=== PATIENT | male | born 2005 | race Caucasian/White ===

== ENCOUNTER 2024-02-28 16:37 | Emergency (ER) | payer MEDICAID, SELFPAY ==
--- NOTE | 2024-02-28 17:05 | ED.GENADULT ---
HPI - General Adult General Chief complaint: Eye Problems Stated complaint: ?FB in R eye Time Seen by Provider: 02/28/24 17:38 Source: patient and family Mode of arrival: ambulatory Limitations: no limitations History of Present Illness ED Provider: Regis Johnson PA-C HPI narrative: 18 yo male with insignificant PMH presenting with right eye irritation, pain, feeling like a scratched area. Reports woke up this morning with this pain and irritation. Does not remember doing anything of significance, denies scratching with fingers or hands, denies itch. Denies discharge, reports watering with the pain, clears with blinking. Denies any changes in vision. Denies URI symptoms. MD complaint: right eye irritation Onset (ago): hour(s) Location: eyes Radiation: non-radiation Severity: moderate Quality: burning Pain Consistency: constant Relieving factors: none Exacerbating factors: none Associated symptoms: denies other symptoms Treatments prior to arrival: none Related Data Previous Rx's ?Medication ?Instructions ?Recorded erythromycin 5 mg/gram (0.5 %) eye 0.5 inch ophthalmic (eye) BID #3.5 02/28/24 ointment grams Allergies Allergy/AdvReac Type Severity Reaction Status Date / Time No Known Allergies Allergy Verified 02/28/24 17:07 Review of Systems Review of Systems: Yes all other systems are reviewed and are negative [facility] Social History Social History Advance Directives: No Advance Directives Information Provided: No Physical Exam ED Vital Signs: Vital Signs - 24 hr 02/28/24 17:06 02/28/24 18:20 Temperature 98.2 F 98.2 F Pulse Rate 51 51 Respiratory Rate 18 18 Blood Pressure 129/90 H 129/90 H Pulse Oximetry 97 97 Oxygen Delivery Method Room Air BMI result Body Mass Index 27.1 Appearance: Alert. Oriented X3. No acute distress. HEENT: right eye with some mild conjunctival and scleral injection mostly in the lateral aspect of the eye. Normal inspection of the left eye conjunctiva and sclera. Normal inspection of the bilateral periorbital regions, extraocular movements are intact and pupils are equal round and reactive to light bilaterally. Fluorescein with a small superficial corneal abrasion with positive uptake at 06:00 o'clock over the iris CVS: Normal heart rate and rhythm. Respiratory: No respiratory distress. Skin: Skin warm and dry. Normal skin color. Normal skin turgor. No rashes. Extremities: normal inspection Neuro: Oriented X 3. Grossly normal, nonfocal Course Course Course Narrative: This is an RME done by MANUELA Medley: Additional HPI, ROS, PE not included below will be deferred to primary provider. 18yo M presents with a CC of foreign body in right eye. Onset this morning upon waking, patient was fine before he went to sleep last night. 7/10 pain. No welding. No sick contacts. No recent URI. Appearance: Alert.? Oriented X3.? No acute cardiopulmonary distress distress.? Head: Normocephalic, atraumatic ENT: Red conjunctiva affecting the R eye CVS: Pulses normal.? Respiratory: No respiratory distress.? Skin: ? Normal skin color. Neuro: Oriented X 3.? Medications Administered Discontinued Medications Generic Name Dose Route Start Last Admin Trade Name Freq PRN Reason Stop Dose Admin Fluorescein Sodium 1 strip 02/28/24 17:38 02/28/24 18:02 Fluorescein Sodium Strip EYE-RIGHT 02/28/24 17:39 1 strip ONCE ONE Administration Tetracaine HCl 1 drop 02/28/24 17:38 02/28/24 18:02 Tetracaine Hcl/Pf 0.5% Oph Mignon 4 Ml Drops EYE-RIGHT 02/28/24 17:39 1 drop ONCE ONE Administration Medical Decision Making Medical Decision Making [facility] Narrative: 18 yo male with insignificant PMH presenting with right eye irritation, pain, feeling like a scratched area. Reports woke up this morning with this pain and irritation. Right eye redness notable to the outter surface, no discharge noted. All EOMs intact, no changes to VA. Visual exam negative for abnormalities. Varela lamp exam however, is notable for small L lower lateral cornea abrasion. Will prescribe erythromycin ointment. Stable for discharge home. Differential Diagnosis Differential Diagnoses: The differential diagnosis associated with the presentation includes conjunctivitis, dry eyes, corneal injury, episcleritits, scleritis, URI Independent Historian Clinical information obtained from an independent historian. History obtained from or confirmed by: Parent External Record Review External record reviewed: Outpatient record, Prior outpatient labs and Prior outpatient radiology Prescription Management I considered prescription management with: Pain Medication and Antibiotic Critical Care Time Critical Care Time Critical Care Time: No Discharge Plan Discharge Clinical Impression: Corneal abrasion Patient Disposition: Home, Self-Care Instructions: Corneal Abrasion (DC) Additional Instructions: your exam showed a small corneal abrasion. Use the prescribed antibiotic ointment 2 times a day for 1 week. Your best not to rub or itch your eye Use cool or warm compresses to the eye as needed for discomfort. Follow-up with your doctor. If you have ongoing symptoms, recommend following up with the research computing specialist. Name and number below. Call for an appointment. Prescriptions: New erythromycin 5 mg/gram (0.5 %) ointment 0.5 inch ophthalmic (eye) BID Qty: 3.5 0RF Referrals: Maxim Rouse [Physician] - (Corneal abrasion) Interventions: ED Discharge Assessment Last Done: 02/28/24 18:20 Discharge Date/Time: 02/28/24 18:20 Print Language: Citizen Of [place]
[2024-02-28 17:06] VITALS: BP 129/90; PULSE 51; RESP 18; TEMP 36.8; O2SAT 97; BMI 27.1
[2024-02-28] MEDS: Tetracaine HCl/PF 0.5% Oph Sol 4 ML DROPS 1 DROP EYE-RIGHT (18:02)
[2024-02-28] MEDS: Fluorescein Sodium STRIP 1 STRIP EYE-RIGHT (18:02)
[2024-02-28 18:20] VITALS: BP 129/90; PULSE 51; RESP 18; TEMP 36.8; O2SAT 97
== END 2024-02-28 18:20 | disposition home or self-care (01) ==
PROVIDERS: Emergency Provider Internal Medicine
DX: S05.01XA Injury of conjunctiva and corneal abrasion without foreign body, right eye, initial encounter (principal); X58.XXXA Exposure to other specified factors, initial encounter; Y93.84 Activity, sleeping; Y92.003 Bedroom of unspecified non-institutional (private) residence as the place of occurrence of the external cause; Y99.9 Unspecified external cause status
CPT/HCPCS: 99282; 99283

== ENCOUNTER 2025-04-29 13:42 | Emergency (ER) | payer SELFPAY ==
--- NOTE | ~2025-04-29 | US_ITS ---
EXAMINATION: US SCROTUM CLINICAL INFORMATION: Left scrotal pain COMPARISON: None available. TECHNIQUE: A sonogram of the scrotum was performed assessing cano-scale appearance and color Doppler flow. Spectral Doppler analysis of the arterial and venous flow were performed in the testes bilaterally. FINDINGS: RIGHT: Right testicle measures 4.3 cm, volume 11 mL. No focal testicular parenchymal lesions are visualized. Spectral Doppler analysis of the arterial and venous flow is documented in the right testis. Right epididymal head is normal in size. Small hydrocele is present. Right epididymal Doppler flow is present LEFT: Left testicle measures 4.2 cm, volume 12 mL. No focal testicular parenchymal lesions are visualized. Spectral Doppler analysis of the arterial and venous flow is documented in the left testis. Left epididymal head is normal in size. There is a 4 mm cyst near the head. Left epididymal Doppler flow is present US/US scrotum doppler IMPRESSION: Small right hydrocele. Small left epididymal head cyst. Electronically signed by: Alejandro Pearce MD 04/29/2025 03:45 PM EST
--- NOTE | ~2025-04-29 | US_ITS ---
EXAMINATION: US SCROTUM CLINICAL INFORMATION: Left scrotal pain COMPARISON: None available. TECHNIQUE: A sonogram of the scrotum was performed assessing cano-scale appearance and color Doppler flow. Spectral Doppler analysis of the arterial and venous flow were performed in the testes bilaterally. FINDINGS: RIGHT: Right testicle measures 4.3 cm, volume 11 mL. No focal testicular parenchymal lesions are visualized. Spectral Doppler analysis of the arterial and venous flow is documented in the right testis. Right epididymal head is normal in size. Small hydrocele is present. Right epididymal Doppler flow is present LEFT: Left testicle measures 4.2 cm, volume 12 mL. No focal testicular parenchymal lesions are visualized. Spectral Doppler analysis of the arterial and venous flow is documented in the left testis. Left epididymal head is normal in size. There is a 4 mm cyst near the head. Left epididymal Doppler flow is present US/US scrotum IMPRESSION: Small right hydrocele. Small left epididymal head cyst. Electronically signed by: Alejandro Pearce MD 04/29/2025 03:45 PM EST
[2025-04-29 14:06] VITALS: BP 133/59; PULSE 64; RESP 16; TEMP 36.7; O2SAT 97; BMI 27.8
--- NOTE | 2025-04-29 14:06 | ED.GENADULT ---
HPI - General Adult General Chief complaint: Urogenital-Male Stated complaint: Genital pain Time Seen by Provider: 04/29/25 17:19 Source: patient Mode of arrival: ambulatory Limitations: no limitations History of Present Illness ED Provider: Yung Richardson HPI narrative: 19 yold male with no pmh presents to the ED for left testicular pain that started this morning. patient has had this pain in the past for couple of years, but today it was the worst. patient presently is asymptomatic. patient denies any penile lesions or penile discharge. Related Data Previous Rx's ?Medication ?Instructions ?Recorded erythromycin 5 mg/gram (0.5 %) eye 0.5 inch ophthalmic (eye) BID #3.5 02/28/24 ointment grams naproxen 500 mg tablet 500 mg PO BID PRN pain #14 tabs 04/29/25 Allergies Allergy/AdvReac Type Severity Reaction Status Date / Time No Known Allergies Allergy Verified 04/29/25 14:09 Review of Systems Review of Systems: left testicular pain Yes all other systems are reviewed and are negative [facility] Social History Social History Smoked in Last 30 Days: No Use of substances other than those prescribed or required for medical reasons: No Advance Directives: No Advance Directives Information Provided: No Do you have a plan to hurt others: No Plan Physical Exam ED Vital Signs: Vital Signs - 24 hr 04/29/25 14:06 04/29/25 17:59 Temperature 98.0 F 98.0 F Pulse Rate 64 63 Respiratory Rate 16 16 Blood Pressure 133/59 L 112/80 Pulse Oximetry 97 95 Oxygen Delivery Method Room Air Room Air BMI result Body Mass Index 27.8 Const General: cooperative, healthy appearing, comfortable, no acute distress, well developed, alert, awake and Physically active Orientation/consciousness: patient oriented x3 [facility] Head: Yes normal to inspection, Yes No palpable skull fracture present, Yes normocephalic and Yes atraumatic Ears: hearing grossly normal bilaterally, external ears normal, TM's normal bilaterally, TM normal on the right, TM normal on the left, EAC's normal, mastoids normal and no periauricular adenopathy Throat: Yes posterior oropharynx normal, Yes tonsils normal and Yes uvula midline Eyes General: appearance normal, both eyes and all related structures Neck Neck: Yes normal visual inspection, Yes full ROM, Yes no lymphadenopathy, Yes no meningeal signs, Yes trachea midline, Yes supple, No anterior neck swelling and No tender Chest Chest palpation & inspection: normal inspection of the chest and normal palpation of entire chest wall Resp Effort & Inspection: normal respiratory effort and able to speak in complete sentences Auscultation: clear to auscultation bilaterally Cardio Jugular venous distension: no JVD Heart sounds: S1 normal heart sound present and S2 normal heart sound present GI Inspection: Yes normal to inspection Palpation (GI): Soft to palpation, not firm, nontender, no guarding and not rigid General: Yes no CVA tenderness Male General Exam: Yes normal external exam Penis: normal penis Meatus: meatus normal Scrotum: scrotum normal Testes: Testes normal Back/Spine/Pelvis Back: no CVA tenderness and No back tenderness Skin General skin exam: no rashes or lesions noted, elasticity normal and turgor normal Neuro General: patient oriented x3, gait normal, tone normal, moves all extremities, Normal light touch and pain sensation, no meningeal signs, no focal motor deficits, CN's II-XI intact bilaterally and normal sensation to monofilament Extrem General: Yes normal to inspection, Yes full ROM and Yes capillary refill normal Psych Appearance: grossly normal, well kempt and not disheveled Course Course Course Narrative: Rapid medical examination performed in triage by Keyonna Olivo PA-C: Patient is a 19 year old assigned male at presenting to the emergency department with left testicular pain. Detailed physical exam and review of systems are deferred to the marketing technologist. Imaging ordered. Patient placed back in the waiting room pending room availability and results. Medical Decision Making Medical Decision Making [facility] Narrative: 19-year-old male presents to the ED for left testicular pain off and on for 3 years but this morning got real bad. Patient denies any trauma or any history of sexual activity. Ultrasound and UA CTA G ordered. Patient is presently asymptomatic. 7:25pm: UA negative for infection. Ultrasound negative for testicular torsion or epididymitis. Sores just epididymal head cyst. Patient informed worrisome signs and informed to return to the ED immediately. Not suspecting kidney stones, pyelonephritis, appendicitis, cholecystitis, or any other life-threatening etiology Differential Diagnosis Differential Diagnoses: The differential diagnosis associated with the presentation includes (Torsion, epididymitis, hydrocele, UTI, kidney stones, STI) Admission/Observation Consideration of admission/observation: Escalation of care including admission/observation considered Lab Data MDM Lab Attestation statement: I reviewed the patient's lab results. Labs: Lab Results 04/29/25 Range/Units 18:14 Urine Color Yellow Urine Appearance Cloudy Urine pH 7.5 (5.0-9.0) Ur Specific [place] 1.025 (1.005-1.025) Urine Protein Negative (Neg-Trace) mg/dL Urine Glucose (UA) Negative (Negative) mg/dL Urine Ketones Negative (Negative) mg/dL Urine Blood Negative (Negative) Urine Nitrite Negative (Negative) Ur Leukocyte Esterase Negative (Negative) Ur N gonorrhoeae DNA (PCR) NOT DETECTED (Not Detect.) Ur Chlamydia DNA (PCR) NOT DETECTED (Not Detect.) Independent Interpretation I performed an independent interpretation of an: Ultrasound Radiology Impression Discussion of test interpretation with radiology: I have reviewed the radiologist's reading. Independent Historian Clinical information obtained from an independent historian. History obtained from or confirmed by: Other (Patient) Prescription Management I considered prescription management with: Pain Medication Discharge Plan Discharge Clinical Impression: Pain in testicle Patient Disposition: Home, Self-Care Instructions: Testicle Pain (ED), Scrotal Pain (ED) Additional Instructions: Recommend follow-up with primary care provider and urologist. Return to the ED immediately for any testicular pain, nausea, vomiting, back pain, dysuria, hematuria, fever, chills, abdominal pain, or penile discharge, or any other concerning symptoms. [place] [id number] Ultrasound Report Signed Patient: Harsha Gurrola MR#: [id number] : 2005 Acct:[id number] Age/Sex: 19 / M ADM Date: 04/29/25 Loc: .ED Attending Dr: Ordering Physician: Keyonna Olivo Date of Service: 04/29/25 Procedure(s): US scrotum doppler Accession Number(s): [id number] cc: Keyonna Olivo; Physician,None ~ Reason for Exam: left testicular pain, torsion? EXAMINATION: US SCROTUM CLINICAL INFORMATION: Left scrotal pain COMPARISON: None available. TECHNIQUE: A sonogram of the scrotum was performed assessing cano-scale appearance and color Doppler flow. Spectral Doppler analysis of the arterial and venous flow were performed in the testes bilaterally. FINDINGS: RIGHT: Right testicle measures 4.3 cm, volume 11 mL. No focal testicular parenchymal lesions are visualized. Spectral Doppler analysis of the arterial and venous flow is documented in the right testis. Right epididymal head is normal in size. Small hydrocele is present. Right epididymal Doppler flow is present LEFT: Left testicle measures 4.2 cm, volume 12 mL. No focal testicular parenchymal lesions are visualized. Spectral Doppler analysis of the arterial and venous flow is documented in the left testis. Left epididymal head is normal in size. There is a 4 mm cyst near the head. Left epididymal Doppler flow is present US/US scrotum doppler IMPRESSION: Small right hydrocele. Small left epididymal head cyst. Electronically signed by: Alejandro Pearce MD 04/29/2025 03:45 PM [facility] Prescriptions: New naproxen 500 mg tablet 500 mg PO BID PRN (Reason: pain) Qty: 14 0RF No Action erythromycin 5 mg/gram (0.5 %) ointment 0.5 inch ophthalmic (eye) BID Qty: 3.5 0RF Referrals: [facility] [Provider Group, Urology] - 2 days Referral Note: Scrotal pain Clinical Impression: Pain in testicle Stand Alone Forms: Work/School Release Interventions: ED Discharge Assessment Last Done: 04/29/25 19:52 Discharge Date/Time: 04/29/25 19:53 Print Language: Setswana
[2025-04-29 17:59] VITALS: BP 112/80; PULSE 63; RESP 16; TEMP 36.7; O2SAT 95
--- NOTE | 2025-04-29 18:00 | PC.NURSE ---
patient a&ox3, vss, us previously performed, bedside exam performed by provider, awaiting urine from patient- pt aware we need urine, pt currently denying pain/discomfort, call corado within reach, plan of care ongoing
[2025-04-29 18:23] LABS: Appearance Urine Cloudy; Glucose Urine UA Negative (Negative); PH 7.5 (5.0-9.0); Specific Gravity - Urine 1.025 (1.005-1.025)
[2025-04-29 19:52] VITALS: BP 126/71; PULSE 60; RESP 14; TEMP 36.6; O2SAT 98
[2025-04-30 08:39] LABS: CT PCR Urine NOT DETECTED (Not Detect.); NG PCR Urine NOT DETECTED (Not Detect.)
== END 2025-04-29 19:53 | disposition home or self-care (01) ==
PROVIDERS: Physician Assistant Medical; Emergency Provider Emergency Medicine
DX: N50.812 Left testicular pain (principal)
CPT/HCPCS: 76870; 81003; 87491; 87591; 93975; 99284

== ENCOUNTER → 2025-04-29 14:07 | Outpatient (BNV) | payer MEDICAID, SELFPAY | PROVIDERS: Visit Provider Radiology Diagnostic Radiology | DX: N43.3 Hydrocele, unspecified (principal); N50.3 Cyst of epididymis | CPT/HCPCS: 76870 ==